=== PATIENT | male | born 1965 | race Caucasian/White ===

== ENCOUNTER 2017-10-01 17:50 | Emergency (ER) | payer MEDICARE, OTHER, MEDICAID | END 2017-10-01 18:40 | disposition home or self-care (01) | LOC: ER 17:50 | DX: F10.129 Alcohol abuse with intoxication, unspecified (principal) | CPT/HCPCS: 99284 ==

== ENCOUNTER 2017-10-13 14:43 | Emergency (ER) | payer MEDICARE, OTHER ==
[2017-10-13] MEDS: IV NORMAL SALINE 1000ML BAG 1,000 ML IV (15:00)
[2017-10-13 15:20] LABS: ANION GAP 6 (6-14); BLOOD UREA NITROGEN 10 mg/dL (8-26); CALCIUM 7.8 mg/dL (8.5-10.1); CARBON DIOXIDE 27 mmol/L (21-32); CHLORIDE 107 mmol/L (98-107); CREATININE 0.8 mg/dL (0.7-1.3); GFR 101.9; GLUCOSE 118 mg/dL (70-99); POTASSIUM 4.1 mmol/L (3.5-5.1); SODIUM 140 mmol/L (136-145)
[2017-10-13 15:40] LABS: ETHANOL 307 mg/dL (0-10)
[2017-10-13 15:50] LABS: CREATINE KINASE 95 U/L (39-308)
[2017-10-13] MEDS: DEXAMETHASONE SOD PHOS 4 MG/ML VIAL IV (15:54)
[2017-10-13] MEDS: LORazepam 1 MG TABLET PO (20:31)
[2017-10-13] MEDS: diphenhydrAMINE 50 MG/ML VIAL IVP (22:13)
== END 2017-10-14 00:09 | disposition home or self-care (01) ==
LOC: ER 10-14 00:09
DX: F10.129 Alcohol abuse with intoxication, unspecified (principal); Y90.8 Blood alcohol level of 240 mg/100 ml or more; Z59.0 Homelessness
CPT/HCPCS: 36415; 80048; 82550; 96374; 96375; 99284-25; G0480; J1100; J1200; J7030

== ENCOUNTER 2018-02-02 16:37 | Inpatient (IN) | payer MEDICARE, OTHER ==
[~2018-02-02] VITALS: Ht 182.9 cm; Wt 113.5 kg
[~2018-02-02 16:37] MED LIST: CARB200T PO; FLUO20CA16 PO; QUET400T4 PO
[2018-02-02 17:37] LABS: BASO # 0.1 x10^3/uL (0.0-0.2); BASO % 1 % (0-3); EOS # 0.3 x10^3/uL (0.0-0.7); EOS % 4 % (0-3); HEMATOCRIT 45.9 % (39.0-53.0); HEMOGLOBIN 15.6 g/dL (13.0-17.5); LYMPH # 2.3 x10^3/uL (1.0-4.8); LYMPH % 31 % (24-48); MEAN CORPUSCULAR HEMOGLOBIN 30 pg (25-35); MEAN CORPUSCULAR HGB CONC 34 g/dL (31-37); MEAN CORPUSCULAR VOLUME 88 fL (79-100); MONO # 0.8 x10^3/uL (0.0-1.1); MONO % 10 % (0-9); NEUT % 53 % (31-73); PLATELET COUNT 314 x10^3/uL (140-400); RED BLOOD COUNT 5.25 x10^6/uL (4.30-5.70); RED CELL DISTRIBUTION WIDTH 15.1 % (11.5-14.5); WHITE BLOOD COUNT 7.6 x10^3/uL (4.0-11.0)
[2018-02-02 17:49] LABS: CALCIUM 8.3 mg/dL (8.5-10.1); CREATININE 0.7 mg/dL (0.7-1.3); GFR 118.4; POTASSIUM 3.7 mmol/L (3.5-5.1)
[2018-02-02 17:54] LABS: ALBUMIN 3.7 g/dL (3.4-5.0); ALBUMIN/GLOBULIN RATIO 0.9 (1.0-1.7); TOTAL BILIRUBIN 0.3 mg/dL (0.2-1.0)
[2018-02-02 18:22] LABS: BILIRUBIN,URINE NEGATIVE (NEG); CLARITY,URINE CLEAR; COLOR,URINE YELLOW; NITRITE,URINE NEGATIVE (NEG); PH,URINE 5.5; PROTEIN,URINE NEGATIVE (NEG-TRACE)
[2018-02-02 18:28] LABS: BACTERIA,URINE 0 /HPF (0-FEW); BARBITURATES NEG (NEG); BENZODIAZEPINES NEG (NEG); CANNABINOIDS NEG (NEG); COCAINE NEG (NEG); METHADONE NEG (NEG); OPIATES NEG (NEG); PHENCYCLIDINE NEG (NEG); RBC,URINE OCC /HPF (0-2); SQUAMOUS EPITHELIAL CELL,UR OCC /LPF; WBC,URINE 0 /HPF (0-4)
[2018-02-02] MEDS ORDERED: ACETAMINOPHEN 325 MG TABLET. PO PRN (18:30)
[2018-02-02] MEDS ORDERED: cloNIDine HCL 0.1 MG TABLET PO PRN (18:30)
[2018-02-02] MEDS ORDERED: HALOPERIDOL LACTATE 5 MG/ML VIAL. IVP PRN (18:30)
[2018-02-02] MEDS ORDERED: diphenhydrAMINE 50 MG/ML VIAL IVP PRN (18:30)
[2018-02-02] MEDS ORDERED: ONDANSETRON PF 4 MG/2 ML VIAL. IV PRN (18:30)
[2018-02-02 18:31] LABS: AMPHETAMINE/METHAMPHETAMINE NEG (NEG)
[2018-02-02] MEDS ORDERED: MULTIVIT INFUSN,ADULT 4,VIT K 10 ML, THIAMINE INJ 100 MG, FOLIC ACID INJ 1 MG in IV NOR... IV SCH (19:00)
[2018-02-02 20:07] VITALS: BP 142/85
--- NOTE | 2018-02-02 20:43 | PHYS DOC ---
Past Medical History Past Medical History: Alcoholism, Seizure, Other Additional Past Medical Histor: Dt's & hallucinations Past Surgical History: Other Additional Past Surgical Histo: RIGHT KNEE SX Alcohol Use: Heavy Additional Information: 1/2 gallon of vodka a day Drug Use: None Adult General Chief Complaint Chief Complaint: MEDICAL CLEARANCE HPI HPI Patient is a 52 year old male who presents with withdrawal from alcohol. The patient states that he has had approximately 1 pint of vodka today. He states he quit drinking at 9 AM. He went to [facility] for detox. He states that they gave him a prescription for Librium. He went to [facility] for treatment and they stated that with his seizure history from previous alcohol withdrawal he would need to have medical clearance. The patient states that he did have a seizure this morning and he has been having increasing DTs as the days progressed. The patient states that he does want to stop drinking alcohol. Review of Systems Review of Systems Constitutional: Denies fever or chills [] Eyes: Denies change in visual acuity, redness, or eye pain [] HENT: Denies nasal congestion or sore throat [] Respiratory: Denies cough or shortness of breath [] Cardiovascular: No additional information not addressed in HPI [] GI: Denies abdominal pain, nausea, vomiting, bloody stools or diarrhea [] : Denies dysuria or hematuria [] Musculoskeletal: Denies back pain or joint pain [] Integument: Denies rash or skin lesions [] Neurologic: See history of present illness Endocrine: Denies polyuria or polydipsia [] All other systems were reviewed and found to be within normal limits, except as documented in this note. Current Medications Current Medications Current Medications Medications (Trade) Dose Ordered Sig/Anaid Start Time Stop Time Status Last Admin Dose Admin Lorazepam (Ativan) 2 mg PRN Q4HRS PRN 02/02/18 17:15 02/02/18 17:50 2 MG Allergies Allergies Allergies Coded Allergies Type Severity Reaction Last Updated Verified No Known Drug Allergies 03/20/14 No Physical Exam Physical Exam Constitutional: Well developed, well nourished, no acute distress, non-toxic appearance. [] HENT: Normocephalic, atraumatic, bilateral external ears normal, multiple missing teeth and dental caries noted Eyes: PERRLA, EOMI, conjunctiva normal, no discharge. [] Neck: Normal range of motion, no tenderness, supple, no stridor. [] Cardiovascular:Heart rate regular rhythm, no murmur [] Lungs & Thorax: Bilateral breath sounds clear to auscultation [] Abdomen: Bowel sounds normal, soft, no tenderness, no masses, no pulsatile masses. [] Skin: Warm, dry, no erythema, no rash. [] Neurologic: Alert and oriented X 3, normal motor function, normal sensory function, no focal deficits noted. [] Psychologic: Affect normal, judgement normal, mood normal. [] Current Patient Data Vital Signs Vital Signs Date Time Temp Pulse Resp B/P (MAP) Pulse Ox O2 Delivery O2 Flow Rate FiO2 02/02/18 17:15 79 12 139/85 (103) 93 Room Air 02/02/18 16:45 98.3 98.3 Lab Values Laboratory Tests Test 02/02/18 17:25 White Blood Count 7.6 x10^3/uL (4.0-11.0) Red Blood Count 5.25 x10^6/uL (4.30-5.70) Hemoglobin 15.6 g/dL (13.0-17.5) Hematocrit 45.9 % (39.0-53.0) Mean Corpuscular Volume 88 fL (79-100) Mean Corpuscular Hemoglobin 30 pg (25-35) Mean Corpuscular Hemoglobin Concent 34 g/dL (31-37) Red Cell Distribution Width 15.1 % (11.5-14.5) H Platelet Count 314 x10^3/uL (140-400) Neutrophils (%) (Auto) 53 % (31-73) Lymphocytes (%) (Auto) 31 % (24-48) Monocytes (%) (Auto) 10 % (0-9) H Eosinophils (%) (Auto) 4 % (0-3) H Basophils (%) (Auto) 1 % (0-3) Neutrophils # (Auto) 4.0 x10^3uL (1.8-7.7) Lymphocytes # (Auto) 2.3 x10^3/uL (1.0-4.8) Monocytes # (Auto) 0.8 x10^3/uL (0.0-1.1) Eosinophils # (Auto) 0.3 x10^3/uL (0.0-0.7) Basophils # (Auto) 0.1 x10^3/uL (0.0-0.2) Sodium Level 139 mmol/L (136-145) Potassium Level 3.7 mmol/L (3.5-5.1) Chloride Level 105 mmol/L (98-107) Carbon Dioxide Level 23 mmol/L (21-32) Anion Gap 11 (6-14) Blood Urea Nitrogen 14 mg/dL (8-26) Creatinine 0.7 mg/dL (0.7-1.3) Estimated GFR (Cockcroft-Gault) 118.4 BUN/Creatinine Ratio 20 (6-20) Glucose Level 109 mg/dL (70-99) H Calcium Level 8.3 mg/dL (8.5-10.1) L Total Bilirubin 0.3 mg/dL (0.2-1.0) Aspartate Amino Transferase (AST) 22 U/L (15-37) Alanine Aminotransferase (ALT) 54 U/L (16-63) Alkaline Phosphatase 85 U/L (46-116) Ammonia 28 mcmol/L (11-34) Total Protein 8.0 g/dL (6.4-8.2) Albumin 3.7 g/dL (3.4-5.0) Albumin/Globulin Ratio 0.9 (1.0-1.7) L Amylase Level 38 U/L (25-115) Lipase 110 U/L (73-393) Ethyl Alcohol Level 85 mg/dL (0-10) H Laboratory Tests 02/02/18 17:25 Laboratory Tests 02/02/18 17:25 EKG EKG [] Radiology/Procedures Radiology/Procedures [] Course & Med Decision Making Course & Med Decision Making Pertinent Labs and Imaging studies reviewed. (See chart for details) []The patient is being admitted to Dr. Hernandez's service. A PAT consult has been placed for tomorrow morning. The patient has been placed on alcohol withdrawal treatment. Staff Physician Addendum: I was working in the ER during the course of this patient's visit. I was available for consultation as needed, but I was not directly involved in the care of this patient. Dragon Disclaimer Dragon Disclaimer This electronic medical record was generated, in whole or in part, using a voice recognition dictation system. Departure Departure Impression: Primary Impression: Alcohol withdrawal Disposition: 09 ADMITTED INPATIENT Admitting Physician: Jose Cruz Hernandez Condition: GOOD Referrals: NO PCP (PCP) MANUEL GREY APRN Feb 02, 2018 20:43 GALO GIL MD Feb 03, 2018 02:26
[2018-02-02 23:00] VITALS: BP 114/63
--- NOTE | 2018-02-02 23:21 | HP ---
ADMIT DATE: 02/02/2018 CHIEF COMPLAINT: Alcohol withdrawal. HISTORY OF PRESENT ILLNESS: The patient is a pleasant 52-year-old male who states he is retired. He drinks heavily, at least a pint a day. I suspect this is more like a court. He presented with 9/10 alcohol withdrawal symptoms. He apparently has been at [facility] as well for detoxification. They gave him some Librium and told him his history of seizures were to be cleared before he could go for detoxification. I have discussed the case with the ER physician. We are going to admit the patient and give him alcohol withdrawal protocol. PAST MEDICAL HISTORY: Alcoholism, seizures, hallucinations. ALLERGIES: None. FAMILY HISTORY: Hypertension and alcoholism. SOCIAL HISTORY: He drinks. Smokes socially. No drugs. MEDICATIONS: Reviewed, please refer to the MRAD. REVIEW OF SYSTEMS: GENERAL: No history of weight change, weakness or fevers. SKIN: No bruising, hair changes or rashes. EYES: No blurred, double or loss of vision. NOSE AND THROAT: No history of nosebleeds, hoarseness or sore throat. HEART: No history of palpitations, chest pain or shortness of breath on exertion. LUNGS: Denies cough, hemoptysis, wheezing or shortness of breath. GASTROINTESTINAL: Denies changes in appetite, nausea, vomiting, diarrhea or constipation. GENITOURINARY: No history of frequency, urgency, hesitancy or nocturia. NEUROLOGIC: He complains of shaking. PSYCHIATRIC: No history of panic, anxiety or depression. ENDOCRINE: No history of heat or cold intolerance, polyuria or polydipsia. EXTREMITIES: Denies muscle weakness, joint pain, pain on walking or stiffness. PHYSICAL EXAMINATION: VITAL SIGNS: Temperature 98, pulse 76, respirations 18, blood pressure 142/85, O2 sat 97% on 2 liters. GENERAL: He is sleeping. He awakens. He is shaking. HEART: Normal S1, S2. LUNGS: Slightly coarse. ABDOMEN: Soft. EXTREMITIES: Trace edema. SKIN: No rashes. ENDOCRINE: No thyromegaly. LYMPHATICS: No cervical nodes. HEMATOPOIETIC: No bruising. NEUROLOGICAL: He is shaking. He is weak. LABORATORY DATA: Hematology is normal. Electrolytes are normal. Drug screen negative except for alcohol. ASSESSMENT AND PLAN: Alcohol withdrawal. The patient has been admitted. We will start alcohol withdrawal protocol. Consult workforce services representative for alcohol rehabilitation. Home meds, cardiac monitoring, frequent labs. IVANA LEÓN DO DR: PRESTON/louie JOB#: [id number] / [id number]
[2018-02-02] MEDS: MULTIVIT INFUSN,ADULT 4,VIT K 10 ML, THIAMINE INJ 100 MG, FOLIC ACID INJ 1 MG in IV NOR... IV SCH (23:40)
[2018-02-03 03:00] VITALS: BP 153/51
[2018-02-03 04:40] LABS: BASO # 0.1 x10^3/uL (0.0-0.2); BASO % 1 % (0-3); EOS # 0.6 x10^3/uL (0.0-0.7); EOS % 6 % (0-3); HEMATOCRIT 41.9 % (39.0-53.0); HEMOGLOBIN 13.9 g/dL (13.0-17.5); LYMPH # 2.6 x10^3/uL (1.0-4.8); LYMPH % 29 % (24-48); MEAN CORPUSCULAR HEMOGLOBIN 29 pg (25-35); MEAN CORPUSCULAR HGB CONC 33 g/dL (31-37); MEAN CORPUSCULAR VOLUME 88 fL (79-100); MONO % 11 % (0-9); NEUT # 4.8 x10^3uL (1.8-7.7); NEUT % 53 % (31-73); PLATELET COUNT 305 x10^3/uL (140-400); RED BLOOD COUNT 4.75 x10^6/uL (4.30-5.70); RED CELL DISTRIBUTION WIDTH 14.9 % (11.5-14.5); WHITE BLOOD COUNT 9.2 x10^3/uL (4.0-11.0)
[2018-02-03 04:56] LABS: CREATININE 0.8 mg/dL (0.7-1.3); GFR 101.5; POTASSIUM 3.9 mmol/L (3.5-5.1)
[2018-02-03 07:00] VITALS: BP 131/72
[2018-02-03] MEDS: NICOTINE 14MG PATCH. TD SCH (08:43)
[2018-02-03] MEDS: MULTIVIT INFUSN,ADULT 4,VIT K 10 ML, THIAMINE INJ 100 MG, FOLIC ACID INJ 1 MG in IV NOR... IV SCH (09:00)
[2018-02-03] MEDS ORDERED: HYDROcodone/APAP 5/325MG 1 TAB TABLET PO PRN (09:15)
[2018-02-03] MEDS ORDERED: ONDANSETRON PF 4 MG/2 ML VIAL. IV PRN (09:15)
[2018-02-03] MEDS ORDERED: QUEtiapine 100 MG TABLET. PO SCH (09:30)
[2018-02-03] MEDS: FLUoxetine HCL 20 MG CAPSULE PO SCH (10:33)
[2018-02-03] MEDS: LORazepam 1 MG TABLET PO PRN ×2 (10:37→20:19)
[2018-02-03 11:00] VITALS: BP 123/71
--- NOTE | 2018-02-03 11:37 | PDOC ---
PROGRESS NOTES Chief Complaint Chief Complaint etoh intoxication Smoker History of Present Illness History of Present Illness Still very shaky I am unsure about his gait The rest of the labs okay Interested in alcohol rehabilitation-social work has consulted Has been in other alcohol rehabs in the past Plan: Continue CIWA protocol Wants nicotine lozenge instead of gum or patch PT OT to add today Will dc when gait steady and less shaky- hopefully tmr Vitals Vitals Vital Signs Date Time Temp Pulse Resp B/P (MAP) Pulse Ox O2 Delivery O2 Flow Rate FiO2 02/03/18 11:00 99.7 71 20 123/71 (88) 93 Room Air 99.7 02/03/18 03:00 2.0 Physical Exam General: Alert, Oriented X3, Cooperative Heart: Regular rate, Normal S1, Normal S2 Lungs: Clear, Other Abdomen: Normal bowel sounds, Soft Extremities: Other (tremors) Skin: No rashes, No breakdown, No significant lesion Labs LABS Laboratory Tests Test 02/02/18 17:25 02/02/18 18:13 02/03/18 03:20 White Blood Count 7.6 x10^3/uL (4.0-11.0) 9.2 x10^3/uL (4.0-11.0) Red Blood Count 5.25 x10^6/uL (4.30-5.70) 4.75 x10^6/uL (4.30-5.70) Hemoglobin 15.6 g/dL (13.0-17.5) 13.9 g/dL (13.0-17.5) Hematocrit 45.9 % (39.0-53.0) 41.9 % (39.0-53.0) Mean Corpuscular Volume 88 fL (79-100) 88 fL (79-100) Mean Corpuscular Hemoglobin 30 pg (25-35) 29 pg (25-35) Mean Corpuscular Hemoglobin Concent 34 g/dL (31-37) 33 g/dL (31-37) Red Cell Distribution Width 15.1 % (11.5-14.5) 14.9 % (11.5-14.5) Platelet Count 314 x10^3/uL (140-400) 305 x10^3/uL (140-400) Neutrophils (%) (Auto) 53 % (31-73) 53 % (31-73) Lymphocytes (%) (Auto) 31 % (24-48) 29 % (24-48) Monocytes (%) (Auto) 10 % (0-9) 11 % (0-9) Eosinophils (%) (Auto) 4 % (0-3) 6 % (0-3) Basophils (%) (Auto) 1 % (0-3) 1 % (0-3) Neutrophils # (Auto) 4.0 x10^3uL (1.8-7.7) 4.8 x10^3uL (1.8-7.7) Lymphocytes # (Auto) 2.3 x10^3/uL (1.0-4.8) 2.6 x10^3/uL (1.0-4.8) Monocytes # (Auto) 0.8 x10^3/uL (0.0-1.1) 1.0 x10^3/uL (0.0-1.1) Eosinophils # (Auto) 0.3 x10^3/uL (0.0-0.7) 0.6 x10^3/uL (0.0-0.7) Basophils # (Auto) 0.1 x10^3/uL (0.0-0.2) 0.1 x10^3/uL (0.0-0.2) Sodium Level 139 mmol/L (136-145) 139 mmol/L (136-145) Potassium Level 3.7 mmol/L (3.5-5.1) 3.9 mmol/L (3.5-5.1) Chloride Level 105 mmol/L (98-107) 105 mmol/L (98-107) Carbon Dioxide Level 23 mmol/L (21-32) 30 mmol/L (21-32) Anion Gap 11 (6-14) 4 (6-14) Blood Urea Nitrogen 14 mg/dL (8-26) 17 mg/dL (8-26) Creatinine 0.7 mg/dL (0.7-1.3) 0.8 mg/dL (0.7-1.3) Estimated GFR (Cockcroft-Gault) 118.4 101.5 BUN/Creatinine Ratio 20 (6-20) Glucose Level 109 mg/dL (70-99) 93 mg/dL (70-99) Calcium Level 8.3 mg/dL (8.5-10.1) 8.0 mg/dL (8.5-10.1) Total Bilirubin 0.3 mg/dL (0.2-1.0) Aspartate Amino Transf (AST/SGOT) 22 U/L (15-37) Alanine Aminotransferase (ALT/SGPT) 54 U/L (16-63) Alkaline Phosphatase 85 U/L (46-116) Ammonia 28 mcmol/L (11-34) Total Protein 8.0 g/dL (6.4-8.2) Albumin 3.7 g/dL (3.4-5.0) Albumin/Globulin Ratio 0.9 (1.0-1.7) Amylase Level 38 U/L (25-115) Lipase 110 U/L (73-393) Ethyl Alcohol Level 85 mg/dL (0-10) Urine Collection Type Unknown Urine Color Yellow Urine Clarity Clear Urine pH 5.5 Urine Specific Cowen 1.025 Urine Protein Negative mg/dL (NEG-TRACE) Urine Glucose (UA) Negative mg/dL (NEG) Urine Ketones (Stick) Negative mg/dL (NEG) Urine Blood Negative (NEG) Urine Nitrite Negative (NEG) Urine Bilirubin Negative (NEG) Urine Urobilinogen Dipstick 1.0 mg/dL (0.2 mg/dL) Urine Leukocyte Esterase Negative (NEG) Urine RBC Occ /HPF (0-2) Urine WBC 0 /HPF (0-4) Urine Squamous Epithelial Cells Occ /LPF Urine Bacteria 0 /HPF (0-FEW) Urine Mucus Marked /LPF Urine Opiates Screen Neg (NEG) Urine Methadone Screen Neg (NEG) Urine Barbiturates Neg (NEG) Urine Phencyclidine Screen Neg (NEG) Urine Amphetamine/Methamphetamine Neg (NEG) Urine Benzodiazepines Screen Neg (NEG) Urine Cocaine Screen Neg (NEG) Urine Cannabinoids Screen Neg (NEG) Urine Ethyl Alcohol Pos (NEG) Review of Systems Review of Systems A 14 point ROS was completed with the following noted as positive: Other systems reviewed and negative. \CONSTITUTIONAL: No fever or chills EYES: No recent changes SKIN: No rash or itching CARDIOVASCULAR: No chest pain, syncope, palpitations, or edema RESPIRATORY: No SOB or cough GASTROINTESTINAL: No nausea, vomiting or abdominal pain NEUROLOGICAL: No headaches or weakness ENDOCRINE: No cold or heat intolerance GENITOURINARY: No urgency or frequency of urination MUSCULOSKELETAL: No back pain or joint pain LYMPHATICS: No enlarged lymph nodes PSYCHIATRIC: No anxiety or depression Assessment and Plan Assessmemt and Plan Problems Medical Problems: (1) Alcohol withdrawal Status: Acute Comment Review of Relevant I have reviewed the following items tamara (where applicable) has been applied. Labs Laboratory Tests Test 02/02/18 17:25 02/02/18 18:13 02/03/18 03:20 White Blood Count 7.6 x10^3/uL (4.0-11.0) 9.2 x10^3/uL (4.0-11.0) Red Blood Count 5.25 x10^6/uL (4.30-5.70) 4.75 x10^6/uL (4.30-5.70) Hemoglobin 15.6 g/dL (13.0-17.5) 13.9 g/dL (13.0-17.5) Hematocrit 45.9 % (39.0-53.0) 41.9 % (39.0-53.0) Mean Corpuscular Volume 88 fL (79-100) 88 fL (79-100) Mean Corpuscular Hemoglobin 30 pg (25-35) 29 pg (25-35) Mean Corpuscular Hemoglobin Concent 34 g/dL (31-37) 33 g/dL (31-37) Red Cell Distribution Width 15.1 % (11.5-14.5) 14.9 % (11.5-14.5) Platelet Count 314 x10^3/uL (140-400) 305 x10^3/uL (140-400) Neutrophils (%) (Auto) 53 % (31-73) 53 % (31-73) Lymphocytes (%) (Auto) 31 % (24-48) 29 % (24-48) Monocytes (%) (Auto) 10 % (0-9) 11 % (0-9) Eosinophils (%) (Auto) 4 % (0-3) 6 % (0-3) Basophils (%) (Auto) 1 % (0-3) 1 % (0-3) Neutrophils # (Auto) 4.0 x10^3uL (1.8-7.7) 4.8 x10^3uL (1.8-7.7) Lymphocytes # (Auto) 2.3 x10^3/uL (1.0-4.8) 2.6 x10^3/uL (1.0-4.8) Monocytes # (Auto) 0.8 x10^3/uL (0.0-1.1) 1.0 x10^3/uL (0.0-1.1) Eosinophils # (Auto) 0.3 x10^3/uL (0.0-0.7) 0.6 x10^3/uL (0.0-0.7) Basophils # (Auto) 0.1 x10^3/uL (0.0-0.2) 0.1 x10^3/uL (0.0-0.2) Sodium Level 139 mmol/L (136-145) 139 mmol/L (136-145) Potassium Level 3.7 mmol/L (3.5-5.1) 3.9 mmol/L (3.5-5.1) Chloride Level 105 mmol/L (98-107) 105 mmol/L (98-107) Carbon Dioxide Level 23 mmol/L (21-32) 30 mmol/L (21-32) Anion Gap 11 (6-14) 4 (6-14) Blood Urea Nitrogen 14 mg/dL (8-26) 17 mg/dL (8-26) Creatinine 0.7 mg/dL (0.7-1.3) 0.8 mg/dL (0.7-1.3) Estimated GFR (Cockcroft-Gault) 118.4 101.5 BUN/Creatinine Ratio 20 (6-20) Glucose Level 109 mg/dL (70-99) 93 mg/dL (70-99) Calcium Level 8.3 mg/dL (8.5-10.1) 8.0 mg/dL (8.5-10.1) Total Bilirubin 0.3 mg/dL (0.2-1.0) Aspartate Amino Transf (AST/SGOT) 22 U/L (15-37) Alanine Aminotransferase (ALT/SGPT) 54 U/L (16-63) Alkaline Phosphatase 85 U/L (46-116) Ammonia 28 mcmol/L (11-34) Total Protein 8.0 g/dL (6.4-8.2) Albumin 3.7 g/dL (3.4-5.0) Albumin/Globulin Ratio 0.9 (1.0-1.7) Amylase Level 38 U/L (25-115) Lipase 110 U/L (73-393) Ethyl Alcohol Level 85 mg/dL (0-10) Urine Collection Type Unknown Urine Color Yellow Urine Clarity Clear Urine pH 5.5 Urine Specific Cowen 1.025 Urine Protein Negative mg/dL (NEG-TRACE) Urine Glucose (UA) Negative mg/dL (NEG) Urine Ketones (Stick) Negative mg/dL (NEG) Urine Blood Negative (NEG) Urine Nitrite Negative (NEG) Urine Bilirubin Negative (NEG) Urine Urobilinogen Dipstick 1.0 mg/dL (0.2 mg/dL) Urine Leukocyte Esterase Negative (NEG) Urine RBC Occ /HPF (0-2) Urine WBC 0 /HPF (0-4) Urine Squamous Epithelial Cells Occ /LPF Urine Bacteria 0 /HPF (0-FEW) Urine Mucus Marked /LPF Urine Opiates Screen Neg (NEG) Urine Methadone Screen Neg (NEG) Urine Barbiturates Neg (NEG) Urine Phencyclidine Screen Neg (NEG) Urine Amphetamine/Methamphetamine Neg (NEG) Urine Benzodiazepines Screen Neg (NEG) Urine Cocaine Screen Neg (NEG) Urine Cannabinoids Screen Neg (NEG) Urine Ethyl Alcohol Pos (NEG) Laboratory Tests Test 02/02/18 17:25 02/02/18 18:13 02/03/18 03:20 White Blood Count 7.6 x10^3/uL (4.0-11.0) 9.2 x10^3/uL (4.0-11.0) Red Blood Count 5.25 x10^6/uL (4.30-5.70) 4.75 x10^6/uL (4.30-5.70) Hemoglobin 15.6 g/dL (13.0-17.5) 13.9 g/dL (13.0-17.5) Hematocrit 45.9 % (39.0-53.0) 41.9 % (39.0-53.0) Mean Corpuscular Volume 88 fL (79-100) 88 fL (79-100) Mean Corpuscular Hemoglobin 30 pg (25-35) 29 pg (25-35) Mean Corpuscular Hemoglobin Concent 34 g/dL (31-37) 33 g/dL (31-37) Red Cell Distribution Width 15.1 % (11.5-14.5) 14.9 % (11.5-14.5) Platelet Count 314 x10^3/uL (140-400) 305 x10^3/uL (140-400) Neutrophils (%) (Auto) 53 % (31-73) 53 % (31-73) Lymphocytes (%) (Auto) 31 % (24-48) 29 % (24-48) Monocytes (%) (Auto) 10 % (0-9) 11 % (0-9) Eosinophils (%) (Auto) 4 % (0-3) 6 % (0-3) Basophils (%) (Auto) 1 % (0-3) 1 % (0-3) Neutrophils # (Auto) 4.0 x10^3uL (1.8-7.7) 4.8 x10^3uL (1.8-7.7) Lymphocytes # (Auto) 2.3 x10^3/uL (1.0-4.8) 2.6 x10^3/uL (1.0-4.8) Monocytes # (Auto) 0.8 x10^3/uL (0.0-1.1) 1.0 x10^3/uL (0.0-1.1) Eosinophils # (Auto) 0.3 x10^3/uL (0.0-0.7) 0.6 x10^3/uL (0.0-0.7) Basophils # (Auto) 0.1 x10^3/uL (0.0-0.2) 0.1 x10^3/uL (0.0-0.2) Sodium Level 139 mmol/L (136-145) 139 mmol/L (136-145) Potassium Level 3.7 mmol/L (3.5-5.1) 3.9 mmol/L (3.5-5.1) Chloride Level 105 mmol/L (98-107) 105 mmol/L (98-107) Carbon Dioxide Level 23 mmol/L (21-32) 30 mmol/L (21-32) Anion Gap 11 (6-14) 4 (6-14) Blood Urea Nitrogen 14 mg/dL (8-26) 17 mg/dL (8-26) Creatinine 0.7 mg/dL (0.7-1.3) 0.8 mg/dL (0.7-1.3) Estimated GFR (Cockcroft-Gault) 118.4 101.5 BUN/Creatinine Ratio 20 (6-20) Glucose Level 109 mg/dL (70-99) 93 mg/dL (70-99) Calcium Level 8.3 mg/dL (8.5-10.1) 8.0 mg/dL (8.5-10.1) Total Bilirubin 0.3 mg/dL (0.2-1.0) Aspartate Amino Transf (AST/SGOT) 22 U/L (15-37) Alanine Aminotransferase (ALT/SGPT) 54 U/L (16-63) Alkaline Phosphatase 85 U/L (46-116) Ammonia 28 mcmol/L (11-34) Total Protein 8.0 g/dL (6.4-8.2) Albumin 3.7 g/dL (3.4-5.0) Albumin/Globulin Ratio 0.9 (1.0-1.7) Amylase Level 38 U/L (25-115) Lipase 110 U/L (73-393) Ethyl Alcohol Level 85 mg/dL (0-10) Urine Collection Type Unknown Urine Color Yellow Urine Clarity Clear Urine pH 5.5 Urine Specific Cowen 1.025 Urine Protein Negative mg/dL (NEG-TRACE) Urine Glucose (UA) Negative mg/dL (NEG) Urine Ketones (Stick) Negative mg/dL (NEG) Urine Blood Negative (NEG) Urine Nitrite Negative (NEG) Urine Bilirubin Negative (NEG) Urine Urobilinogen Dipstick 1.0 mg/dL (0.2 mg/dL) Urine Leukocyte Esterase Negative (NEG) Urine RBC Occ /HPF (0-2) Urine WBC 0 /HPF (0-4) Urine Squamous Epithelial Cells Occ /LPF Urine Bacteria 0 /HPF (0-FEW) Urine Mucus Marked /LPF Urine Opiates Screen Neg (NEG) Urine Methadone Screen Neg (NEG) Urine Barbiturates Neg (NEG) Urine Phencyclidine Screen Neg (NEG) Urine Amphetamine/Methamphetamine Neg (NEG) Urine Benzodiazepines Screen Neg (NEG) Urine Cocaine Screen Neg (NEG) Urine Cannabinoids Screen Neg (NEG) Urine Ethyl Alcohol Pos (NEG) Medications Current Medications Lorazepam (Ativan) 2 mg PRN Q4HRS PRN IV ANXIETY / AGITATION Last administered on 02/02/18at 17:50; Start 02/02/18 at 17:15 Multivitamins 10 ml/Thiamine HCl 100 mg/Folic Acid 1 mg/Sodium Chloride 1,011.2 ml @ 100 mls/ hr Q24H IV ; Start 02/02/18 at 19:00; Stop 02/02/18 at 22:51; Status DC Lorazepam (Ativan) 4 mg PRN Q1HR PRN PO For CIWA 8-14 Last administered on 02/03at 10:37; Start 02/02/18 at 18:30 Lorazepam (Ativan) 2 mg PRN Q1HR PRN IV For CIWA 8-14 Last administered on 02/03 08:43; Start 02/02/18 at 18:30 Haloperidol Lactate (Haldol Inj) 5 mg PRN Q4HRS PRN IVP Hallucinatns,Confusn, Delirium; Start 02/02/18 at 18:30 Diphenhydramine HCl (Benadryl) 25 mg PRN Q15MIN PRN IVP EPS symptoms 2'Haldol admin; Start 02/02/18 at 18:30 Clonidine HCl (Catapres) 0.1 mg PRN Q1HR PRN PO SBP > 180 or DBP > 100, MRX3; Start 02/02/18 at 18:30 Ondansetron HCl (Zofran) 4 mg PRN Q8HRS PRN IV NAUSEA/VOMITING Last administered on 02/02/18at 20:22; Start 02/02/18 at 18:30; Stop 02/03/18 at 09:11 ; Status DC Acetaminophen (Tylenol) 650 mg PRN Q4HRS PRN PO FEVER Last administered on 02/03 08:43; Start 02/02/18 at 18:30; Stop 02/03/18 at 18:29 Nicotine (Nicoderm Cq 14mg) 1 patch DAILY TD Last administered on 02/03/18at 08: 43; Start 02/03/18 at 09:00 Multivitamins 10 ml/Thiamine HCl 100 mg/Folic Acid 1 mg/Sodium Chloride 1,011.2 ml @ 100 mls/ hr DAILY IV Last administered on 02/02/18at 23:40; Start at 23:00; Stop 02/06/18 at 19:07 Ondansetron HCl (Zofran) 4 mg PRN Q6HRS PRN IV NAUSEA/VOMITING; Start 02/03/18 at 09:15 Nicotine Polacrilex (Nicorette Gum) 1 each PRN Q1HR PRN BC SMOKING CESSATION; Start 02/03/18 at 09:15 Acetaminophen/ Hydrocodone Bitart (Lortab 5/325) 1 tab PRN Q4HRS PRN PO MODERATE PAIN; Start 02/03/18 at 09:15 Fluoxetine HCl (PROzac) 20 mg [id number] PO Last administered on 02/03/18at 10: 33; Start 02/03/18 at 10:00 Quetiapine Fumarate (SEROquel) 400 mg DAILY PO ; Start 02/03/18 at 09:30; Stop 02/03/18 at 09:30; Status DC Quetiapine Fumarate (SEROquel) 400 mg QHS PO ; Start 02/03/18 at 21:00 Active Scripts Active Reported Prozac (Fluoxetine Hcl) 20 Mg Capsule 1 Cap PO [id number] Seroquel (Quetiapine Fumarate) 400 Mg Tablet 1 Tab PO QHS Vitals/I & O Vital Sign - Last 24 Hours 02/02/18 02/02/18 02/02/18 02/02/18 16:40 16:45 17:15 17:45 Temp 98.4 98.3 98.4 98.3 Pulse 90 87 79 82 Resp 10 10 12 B/P (MAP) 138/87 (104) 138/87 (104) 139/85 (103) 120/85 (97) Pulse Ox 97 94 93 94 O2 Delivery Room Air Room Air Room Air Room Air 02/02/18 02/02/18 02/02/18 02/02/18 18:15 20:00 20:07 20:15 Temp 98.6 98.6 Pulse 77 96 76 Resp 18 20 18 B/P (MAP) 126/89 (101) 109/78 (88) 142/85 (104) Pulse Ox 92 97 97 O2 Delivery Room Air Room Air Nasal Cannula Room Air O2 Flow Rate 2.0 02/02/18 02/03/18 02/03/18 02/03/18 23:00 03:00 07:00 11:00 Temp 98.2 98.7 98.1 99.7 98.2 98.7 98.1 99.7 Pulse 74 53 79 71 Resp 17 16 20 20 B/P (MAP) 114/63 (80) 153/51 (85) 131/72 (91) 123/71 (88) Pulse Ox 93 97 92 93 O2 Delivery Room Air Room Air Room Air Room Air O2 Flow Rate 2.0 Intake and Output 02/02/18 02/02/18 02/03/18 15:00 23:00 07:00 Output Total 150 ml Balance -150 ml NUSRAT ATKINS MD Feb 03, 2018 11:37
[2018-02-03] MEDS: NICOTINE POLACRILEX 2MG GUM PACKAGE of 12. BC PRN ×3 (11:49→16:01)
[2018-02-03 15:00] VITALS: BP 122/74
[2018-02-03 19:00] VITALS: BP 132/87
[2018-02-03] MEDS: QUEtiapine 100 MG TABLET. PO SCH (20:20)
[2018-02-03 23:00] VITALS: BP 121/84
[2018-02-04] MEDS: LORazepam 1 MG TABLET PO PRN ×7 (01:14→18:38)
[2018-02-04 07:58] VITALS: BP 114/78
[2018-02-04] MEDS: FLUoxetine HCL 20 MG CAPSULE PO SCH (08:34)
[2018-02-04] MEDS: NICOTINE 14MG PATCH. TD SCH (08:36)
[2018-02-04] MEDS ORDERED: HALOPERIDOL LACTATE 5 MG/ML VIAL. IM ONE (11:30)
--- NOTE | 2018-02-04 11:31 | PDOC ---
PROGRESS NOTES Chief Complaint Chief Complaint etoh intoxication Smoker Alcoholic enceph History of Present Illness History of Present Illness Going Into full-blown alcohol withdrawals currently, shaky, restless fidgety, getting Ativan by mouth, seemingly not touching him yet At the nurses station, walking the halls lost an IV Plan: TAQUERIA Wiggins now Needs an IV line Josh will see patient later Not ready to DC, going into full-blown alcohol withdrawals CIWA 1:1 Vitals Vitals Vital Signs Date Time Temp Pulse Resp B/P (MAP) Pulse Ox O2 Delivery O2 Flow Rate FiO2 02/04/18 07:58 97.7 69 18 114/78 (90) 94 Room Air 97.7 Physical Exam General: Alert, Oriented X3, Cooperative Heart: Regular rate, Normal S1, Normal S2 Lungs: Clear, Other Abdomen: Normal bowel sounds, Soft Extremities: Other (tremors) Skin: No rashes, No breakdown, No significant lesion Review of Systems Review of Systems limited, alcohol withdrawal Assessment and Plan Assessmemt and Plan Problems Medical Problems: (1) Alcohol withdrawal Status: Acute Comment Review of Relevant I have reviewed the following items tamara (where applicable) has been applied. Labs Laboratory Tests Test 02/02/18 17:25 02/02/18 18:13 02/03/18 03:20 White Blood Count 7.6 x10^3/uL (4.0-11.0) 9.2 x10^3/uL (4.0-11.0) Red Blood Count 5.25 x10^6/uL (4.30-5.70) 4.75 x10^6/uL (4.30-5.70) Hemoglobin 15.6 g/dL (13.0-17.5) 13.9 g/dL (13.0-17.5) Hematocrit 45.9 % (39.0-53.0) 41.9 % (39.0-53.0) Mean Corpuscular Volume 88 fL (79-100) 88 fL (79-100) Mean Corpuscular Hemoglobin 30 pg (25-35) 29 pg (25-35) Mean Corpuscular Hemoglobin Concent 34 g/dL (31-37) 33 g/dL (31-37) Red Cell Distribution Width 15.1 % (11.5-14.5) 14.9 % (11.5-14.5) Platelet Count 314 x10^3/uL (140-400) 305 x10^3/uL (140-400) Neutrophils (%) (Auto) 53 % (31-73) 53 % (31-73) Lymphocytes (%) (Auto) 31 % (24-48) 29 % (24-48) Monocytes (%) (Auto) 10 % (0-9) 11 % (0-9) Eosinophils (%) (Auto) 4 % (0-3) 6 % (0-3) Basophils (%) (Auto) 1 % (0-3) 1 % (0-3) Neutrophils # (Auto) 4.0 x10^3uL (1.8-7.7) 4.8 x10^3uL (1.8-7.7) Lymphocytes # (Auto) 2.3 x10^3/uL (1.0-4.8) 2.6 x10^3/uL (1.0-4.8) Monocytes # (Auto) 0.8 x10^3/uL (0.0-1.1) 1.0 x10^3/uL (0.0-1.1) Eosinophils # (Auto) 0.3 x10^3/uL (0.0-0.7) 0.6 x10^3/uL (0.0-0.7) Basophils # (Auto) 0.1 x10^3/uL (0.0-0.2) 0.1 x10^3/uL (0.0-0.2) Sodium Level 139 mmol/L (136-145) 139 mmol/L (136-145) Potassium Level 3.7 mmol/L (3.5-5.1) 3.9 mmol/L (3.5-5.1) Chloride Level 105 mmol/L (98-107) 105 mmol/L (98-107) Carbon Dioxide Level 23 mmol/L (21-32) 30 mmol/L (21-32) Anion Gap 11 (6-14) 4 (6-14) Blood Urea Nitrogen 14 mg/dL (8-26) 17 mg/dL (8-26) Creatinine 0.7 mg/dL (0.7-1.3) 0.8 mg/dL (0.7-1.3) Estimated GFR (Cockcroft-Gault) 118.4 101.5 BUN/Creatinine Ratio 20 (6-20) Glucose Level 109 mg/dL (70-99) 93 mg/dL (70-99) Calcium Level 8.3 mg/dL (8.5-10.1) 8.0 mg/dL (8.5-10.1) Total Bilirubin 0.3 mg/dL (0.2-1.0) Aspartate Amino Transf (AST/SGOT) 22 U/L (15-37) Alanine Aminotransferase (ALT/SGPT) 54 U/L (16-63) Alkaline Phosphatase 85 U/L (46-116) Ammonia 28 mcmol/L (11-34) Total Protein 8.0 g/dL (6.4-8.2) Albumin 3.7 g/dL (3.4-5.0) Albumin/Globulin Ratio 0.9 (1.0-1.7) Amylase Level 38 U/L (25-115) Lipase 110 U/L (73-393) Ethyl Alcohol Level 85 mg/dL (0-10) Urine Collection Type Unknown Urine Color Yellow Urine Clarity Clear Urine pH 5.5 Urine Specific Cedar 1.025 Urine Protein Negative mg/dL (NEG-TRACE) Urine Glucose (UA) Negative mg/dL (NEG) Urine Ketones (Stick) Negative mg/dL (NEG) Urine Blood Negative (NEG) Urine Nitrite Negative (NEG) Urine Bilirubin Negative (NEG) Urine Urobilinogen Dipstick 1.0 mg/dL (0.2 mg/dL) Urine Leukocyte Esterase Negative (NEG) Urine RBC Occ /HPF (0-2) Urine WBC 0 /HPF (0-4) Urine Squamous Epithelial Cells Occ /LPF Urine Bacteria 0 /HPF (0-FEW) Urine Mucus Marked /LPF Urine Opiates Screen Neg (NEG) Urine Methadone Screen Neg (NEG) Urine Barbiturates Neg (NEG) Urine Phencyclidine Screen Neg (NEG) Urine Amphetamine/Methamphetamine Neg (NEG) Urine Benzodiazepines Screen Neg (NEG) Urine Cocaine Screen Neg (NEG) Urine Cannabinoids Screen Neg (NEG) Urine Ethyl Alcohol Pos (NEG) Medications Current Medications Lorazepam (Ativan) 2 mg PRN Q4HRS PRN IV ANXIETY / AGITATION Last administered on 02/02/18at 17:50; Start 02/02/18 at 17:15 Multivitamins 10 ml/Thiamine HCl 100 mg/Folic Acid 1 mg/Sodium Chloride 1,011.2 ml @ 100 mls/ hr Q24H IV ; Start 02/02/18 at 19:00; Stop 02/02/18 at 22:51; Status DC Lorazepam (Ativan) 4 mg PRN Q1HR PRN PO For CIWA 8-14 Last administered on 02/04at 10:51; Start 02/02/18 at 18:30 Lorazepam (Ativan) 2 mg PRN Q1HR PRN IV For CIWA 8-14 Last administered on 02/03at 17:21; Start 02/02/18 at 18:30 Haloperidol Lactate (Haldol Inj) 5 mg PRN Q4HRS PRN IVP Hallucinatns,Confusn, Delirium Last administered on 02/03/18at 16:55; Start 02/02/18 at 18:30 Diphenhydramine HCl (Benadryl) 25 mg PRN Q15MIN PRN IVP EPS symptoms 2'Haldol admin; Start 02/02/18 at 18:30 Clonidine HCl (Catapres) 0.1 mg PRN Q1HR PRN PO SBP > 180 or DBP > 100, MRX3; Start 02/02/18 at 18:30 Ondansetron HCl (Zofran) 4 mg PRN Q8HRS PRN IV NAUSEA/VOMITING Last administered on 02/02/18at 20:22; Start 02/02/18 at 18:30; Stop 02/03/18 at 09:11 ; Status DC Acetaminophen (Tylenol) 650 mg PRN Q4HRS PRN PO FEVER Last administered on 02/03at 08:43; Start 02/02/18 at 18:30; Stop 02/03/18 at 18:29; Status DC Nicotine (Nicoderm Cq 14mg) 1 patch DAILY TD Last administered on 02/04/18at 08: 36; Start 02/03/18 at 09:00 Multivitamins 10 ml/Thiamine HCl 100 mg/Folic Acid 1 mg/Sodium Chloride 1,011.2 ml @ 100 mls/ hr DAILY IV Last administered on 02/03/18at 09:00; Start at 23:00; Stop 9/16/18 at 19:07 Ondansetron HCl (Zofran) 4 mg PRN Q6HRS PRN IV NAUSEA/VOMITING; Start 02/03/18 at 09:15 Nicotine Polacrilex (Nicorette Gum) 1 each PRN Q1HR PRN BC SMOKING CESSATION Last administered on 02/03/18at 16:01; Start 02/03/18 at 09:15 Acetaminophen/ Hydrocodone Bitart (Lortab 5/325) 1 tab PRN Q4HRS PRN PO MODERATE PAIN; Start 02/03/18 at 09:15 Fluoxetine HCl (PROzac) 20 mg DAILYWBKFT PO Last administered on 02/04/18at 08: 34; Start 02/03/18 at 10:00 Quetiapine Fumarate (SEROquel) 400 mg DAILY PO ; Start 02/03/18 at 09:30; Stop 02/03/18 at 09:30; Status DC Quetiapine Fumarate (SEROquel) 400 mg QHS PO Last administered on 02/03/18at 20: 20; Start 02/03/18 at 21:00 Active Scripts Active Reported Prozac (Fluoxetine Hcl) 20 Mg Capsule 1 Cap PO DAILYWBKFT Seroquel (Quetiapine Fumarate) 400 Mg Tablet 1 Tab PO QHS Vitals/I & O Vital Sign - Last 24 Hours 02/03/18 02/03/18 02/03/18 02/03/18 15:00 19:00 20:00 23:00 Temp 98.1 97.8 97.9 98.1 97.8 97.9 Pulse 70 88 72 Resp 16 19 16 B/P (MAP) 122/74 (90) 132/87 (102) 121/84 (96) Pulse Ox 92 94 95 O2 Delivery Room Air Room Air Room Air Room Air 02/04/18 07:58 Temp 97.7 97.7 Pulse 69 Resp 18 B/P (MAP) 114/78 (90) Pulse Ox 94 O2 Delivery Room Air Intake and Output 02/03/18 02/03/18 02/04/18 15:00 23:00 07:00 Intake Total 720 ml 480 ml 480 ml Output Total 600 ml 600 ml Balance 720 ml -120 ml -120 ml NUSRAT ATKINS MD Feb 04, 2018 11:31
[2018-02-04 11:40] VITALS: BP 138/78
[2018-02-04] MEDS: MULTIVIT INFUSN,ADULT 4,VIT K 10 ML, THIAMINE INJ 100 MG, FOLIC ACID INJ 1 MG in IV NOR... IV SCH (12:58)
[2018-02-04] MEDS: chlordiazePOXIDE HCL 25 MG CAPSULE PO PRN (14:55)
[2018-02-04 15:00] VITALS: BP 144/89
[2018-02-04] MEDS: HALOPERIDOL 5 MG TABLET. PO PRN (16:04)
[2018-02-04] MEDS: NICOTINE POLACRILEX 2MG GUM PACKAGE of 12. BC PRN (18:55)
[2018-02-04 19:00] VITALS: BP 141/92
[2018-02-04] MEDS: QUEtiapine 100 MG TABLET. PO SCH (20:02)
[2018-02-05 03:00] VITALS: BP 114/79
[2018-02-05] MEDS: LORazepam 1 MG TABLET PO PRN ×2 (06:59→10:28)
[2018-02-05 07:15] VITALS: BP 132/81
[2018-02-05] MEDS: chlordiazePOXIDE HCL 25 MG CAPSULE PO PRN (07:55)
[2018-02-05] MEDS: NICOTINE 14MG PATCH. TD SCH (07:55)
[2018-02-05] MEDS: FLUoxetine HCL 20 MG CAPSULE PO SCH (07:55)
[2018-02-05] MEDS: MULTIVIT INFUSN,ADULT 4,VIT K 10 ML, THIAMINE INJ 100 MG, FOLIC ACID INJ 1 MG in IV NOR... IV SCH (09:00)
--- NOTE | 2018-02-05 10:59 | PDOC3 ---
Discharge Summary Visit Information Date of Admission: Feb 02, 2018 Date of Discharge: Feb 05, 2018 Admitting Diagnosis Comment: Chief Complaint etoh intoxication Smoker Alcoholic enceph Final Diagnosis Problems Medical Problems: (1) Alcohol withdrawal Status: Acute Brief Hospital Course Allergies Allergies Coded Allergies Type Severity Reaction Last Updated Verified No Known Drug Allergies 03/20/14 No Vital Signs Vital Signs Date Time Temp Pulse Resp B/P (MAP) Pulse Ox O2 Delivery O2 Flow Rate FiO2 02/05/18 08:00 Room Air 02/05/18 07:15 98.0 72 18 132/81 (98) 92 98.0 Brief Hospital Course Mr. Massey is a 52 old white male who apparently is a regular here because of frequent alcohol intoxication, already has been to alcohol rehabilitation program before, noncompliant with meds as discussed with Josh, comes in because another episode of alcohol intoxication. He stayed for 3 days, gait unsteady and confused needing Haldol etc. Now ready and medically ready to go to [facility]. Librium Rx on chart etoh cessation done on days that he was awake. I have my doubts that he will cease alcohol. But at least he is on the right medications and enrolled in a program. Consults performed none Procedures performed none Time spent discharge less than 30 minutes Discharge Information Condition at Discharge: Improved, Stable Disposition/Orders: D/C to Another Facility, Other ([facility]) Scheduled Fluoxetine Hcl (Prozac) 20 Mg Capsule, 1 CAP PO DAILYWBKFT, #30 Ref 1 (Reported) Entered as Reported by: HUNTER RIVAS on 03/20/14815 Last Action: Continued on 02/03/18909 by NUSRAT ATKINS Quetiapine Fumarate (Seroquel) 400 Mg Tablet, 1 TAB PO QHS, #30 Ref 1 (Reported) Entered as Reported by: HUNTER RIVAS on 03/20/14815 Last Action: Converted on 02/03/18909 by NUSRAT GREENE MD Feb 05, 2018 10:59
[2018-02-05] MEDS: HALOPERIDOL 5 MG TABLET. PO PRN (11:17)
== END 2018-02-05 11:20 | disposition short-term general hospital (02) | DRG 57 ==
LOC: ER 16:37 → 5 SOUTH 17:40
PROVIDERS: ADMIT Internal Medicine; ATTEND Internal Medicine
DX: G31.2 Degeneration of nervous system due to alcohol (principal); F10.221 Alcohol dependence with intoxication delirium; F10.231 Alcohol dependence with withdrawal delirium; F17.200 Nicotine dependence, unspecified, uncomplicated; Y90.0 Blood alcohol level of less than 20 mg/100 ml; Z91.14 Patient's other noncompliance with medication regimen; Z71.41 Alcohol abuse counseling and surveillance of alcoholic; Z79.899 Other long term (current) drug therapy; Z82.49 Family history of ischemic heart disease and other diseases of the circulatory system
CPT/HCPCS: 36415; 80048; 80053; 80307; 81001; 82140; 82150; 83690; 85025; 96374; G0480; J1630; J2060; J2405; J7030; 97535; 99285-25; G0479